=== PATIENT | female | born 1945 | race Caucasian/White ===

== ENCOUNTER → 2016-12-04 | Outpatient (CLI) | payer MEDICARE | LOC: MAMO 12-02 10:30 | DX: Z12.31 Encounter for screening mammogram for malignant neoplasm of breast (principal); Z90.12 Acquired absence of left breast and nipple; Z90.710 Acquired absence of both cervix and uterus | CPT/HCPCS: G0202 ==

== ENCOUNTER 2021-03-21 10:58 | Emergency (ER) | payer MEDICARE ==
[2021-03-21 12:19] LABS: HEMOGLOBIN 15.6 gm/dl (12.3-15.3); RED BLOOD COUNT 4.69 M/UL (4.00-5.10); WHITE BLOOD COUNT 6.8 K/UL (4.5-11.0)
[2021-03-21 13:25] LABS: BUN/CREATININE RATIO 18 (0-10)
== END 2021-03-21 14:15 | disposition home or self-care (01) ==
LOC: ER1 10:58
PROVIDERS: Physician Assistant Medical
DX: R06.02 Shortness of breath (principal); R09.81 Nasal congestion; J44.9 Chronic obstructive pulmonary disease, unspecified; F17.210 Nicotine dependence, cigarettes, uncomplicated; Z20.822 Contact with and (suspected) exposure to COVID-19
CPT/HCPCS: 36600; 71045; 80053; 82803; 84484; 85025; 93005; 99285; U0002

== ENCOUNTER 2021-10-22 04:57 | Emergency (ER) | payer MEDICARE ==
[2021-10-22 05:35] LABS: HEMOGLOBIN 16.6 gm/dl (12.3-15.3); RED BLOOD COUNT 5.14 M/UL (4.00-5.10); WHITE BLOOD COUNT 8.1 K/UL (4.5-11.0)
[2021-10-22 06:02] LABS: BUN/CREATININE RATIO 23 (0-10)
[2021-10-22] MEDS ORDERED: MIRALAX17 GM PO (07:48)
== END 2021-10-22 08:13 | disposition home or self-care (01) ==
LOC: ER1 04:57
PROVIDERS: Physician Assistant
DX: K59.00 Constipation, unspecified (principal); R11.2 Nausea with vomiting, unspecified; I10 Essential (primary) hypertension; F17.200 Nicotine dependence, unspecified, uncomplicated; Z88.5 Allergy status to narcotic agent; K86.1 Other chronic pancreatitis
CPT/HCPCS: 80053; 81001; 82150; 83605; 83690; 85025; 87086; 99284; Q9967

== ENCOUNTER 2022-03-12 11:44 | Inpatient (IN) | payer MEDICARE ==
[~2022-03-12] VITALS: Ht 154.9 cm; Wt 63.7 kg
[~2022-03-12 11:44] MED LIST: DOXYCYCLINE HY100 MG PO; MIRALAX17 GM PO; PREDNISONE10 MG PO
[2022-03-12 12:54] LABS: HEMOGLOBIN 15.9 gm/dl (12.3-15.3); RED BLOOD COUNT 4.92 M/UL (4.00-5.10); WHITE BLOOD COUNT 5.4 K/UL (4.5-11.0)
[2022-03-12 14:10] LABS: BUN/CREATININE RATIO 35 (0-10)
[2022-03-12] MEDS ORDERED: PROVENTIL HFA6.7 GM INH (17:35)
[2022-03-12] MEDS ORDERED: CARVEDILOL12.5 MG PO (17:36)
[2022-03-12] MEDS ORDERED: CETIRIZINE HCL10 MG PO (17:37)
[2022-03-12] MEDS ORDERED: CREON DR 24,001 EACH PO (17:37)
[2022-03-12] MEDS ORDERED: LEVOTHYROXINE50 MCG PO (17:38)
[2022-03-12] MEDS ORDERED: LORATADINE10 MG PO (17:39)
[2022-03-12] MEDS ORDERED: MONTELUKAST SOD10 MG PO (17:40)
[2022-03-12] MEDS ORDERED: BREZTRI AEROS10.7 GM INH (17:40)
[2022-03-13 02:38] LABS: HEMOGLOBIN 14.5 gm/dl (12.3-15.3); RED BLOOD COUNT 4.55 M/UL (4.00-5.10)
[2022-03-13 02:52] LABS: WHITE BLOOD COUNT 3.3 K/UL (4.5-11.0)
[2022-03-13 02:57] LABS: BUN/CREATININE RATIO 21 (0-10)
[2022-03-14 02:05] LABS: HEMOGLOBIN 14.4 gm/dl (12.3-15.3); RED BLOOD COUNT 4.52 M/UL (4.00-5.10); WHITE BLOOD COUNT 6.1 K/UL (4.5-11.0)
[2022-03-14 02:32] LABS: BUN/CREATININE RATIO 30 (0-10)
[2022-03-14] MEDS ORDERED: DECADRON6 MG PO (12:56)
[2022-03-14] MEDS ORDERED: DOXYCYCLINE HY100 MG PO (12:56)
== END 2022-03-14 15:53 | disposition home or self-care (01) | DRG 177 ==
LOC: ER1 11:44 → CDU 16:13 → M/S 16:13
PROVIDERS: Physician Assistant Medical; Student in an Organized Health Care Education/Training Program; ADMIT Internal Medicine
PROC: 3E0333Z Introduction of Anti-inflammatory into Peripheral Vein, Percutaneous Approach (ICD-10-PCS; principal; 2022-03-12)
PROC: 8E0ZXY6 Isolation (ICD-10-PCS; 2022-03-12)
DX: U07.1 COVID-19 (principal); J12.82 Pneumonia due to coronavirus disease 2019; J96.21 Acute and chronic respiratory failure with hypoxia; J44.1 Chronic obstructive pulmonary disease with (acute) exacerbation; K86.1 Other chronic pancreatitis; J44.0 Chronic obstructive pulmonary disease with (acute) lower respiratory infection; I10 Essential (primary) hypertension; I71.4 Abdominal aortic aneurysm, without rupture; F17.200 Nicotine dependence, unspecified, uncomplicated; Z66 Do not resuscitate; E03.9 Hypothyroidism, unspecified; Z82.49 Family history of ischemic heart disease and other diseases of the circulatory system; Z90.49 Acquired absence of other specified parts of digestive tract; Z90.12 Acquired absence of left breast and nipple; Z98.890 Other specified postprocedural states; Z88.5 Allergy status to narcotic agent; Z91.040 Latex allergy status; Z82.3 Family history of stroke; Z85.118 Personal history of other malignant neoplasm of bronchus and lung; Z85.828 Personal history of other malignant neoplasm of skin; Z79.52 Long term (current) use of systemic steroids; Z90.2 Acquired absence of lung [part of]
CPT/HCPCS: 0240U; 36415; 36600; 71045; 71250; 80048; 80053; 81001; 82550; 82553; 82803; 83735; 83880; 84484; 85025; 85027; 93005; 94640; 94664; 94760; 96374; 99285; J1100; J1650; J2405; J3475; J7070